=== PATIENT | male | born 1985 | race Caucasian/White ===

== ENCOUNTER 2021-05-08 11:13 | Emergency (ER) | payer OTHER ==
[2021-05-08 12:37] LABS: BASOPHIL 0.2 % (0-2); EOSINOPHIL 0.9 % (0-5); HCT 42.4 % (42.0-52.0); HGB 15.2 g/dl (13.2-18.0); LYMPHOCYTE 25.2 % (15-48); MCH 30.1 pg (25.0-31.0); MCHC 35.8 g/dL (32.0-36.0); MONOCYTE 5.6 % (0-12); MPV 9.9 fL (6.0-9.5); NEUTROPHIL 67.4 % (41-80); NRBC 0; PLT 144 K/uL (150-400); RBC 5.05 M/uL (4.70-6.00); RDW 11.6 % (11.5-14.0); WBC 5.5 K/uL (4.0-10.5)
[2021-05-08 12:56] LABS: BUN/CREAT RATIO (CALC) 15.4 RATIO; CREATININE 0.91 mg/dL (0.67-1.17); POTASSIUM 4.3 mmol/L (3.5-5.1)
[2021-05-08] MEDS ORDERED: MEDROL 4MG DOSEP4 MG PO (13:38)
[2021-05-08] MEDS ORDERED: VENTOLIN HFA IN18 GM INH (13:38)
== END 2021-05-08 14:10 | disposition home or self-care (01) ==
LOC: FER 11:13
PROVIDERS: Nurse Practitioner Family
DX: U07.1 COVID-19 (principal); J12.82 Pneumonia due to coronavirus disease 2019
CPT/HCPCS: 36415; 71045; 80048; 85025; 85379; J1100